=== PATIENT | female | born 1990 | race Two or more races ===

== ENCOUNTER 2018-01-06 19:25 | Emergency (ER) | payer OTHER ==
[2018-01-06] MEDS ORDERED: KETOROLAC TROMETHAMINE INJ/PF 30 MG/1 ML SDV IM ONE (19:53)
[2018-01-06] MEDS ORDERED: DICYCLOMINE HCL 20 MG TABLET PO ONE (19:54)
[2018-01-06] MEDS ORDERED: PROCHLORPERAZINE MALEATE 10 MG TABLET PO ONE (19:55)
--- NOTE | 2018-01-06 19:55 | ER Document Report ---
ED Medical Screen (RME) - General Chief Complaint: Abdominal Pain Stated Complaint: NAUSEA/ABDOMINAL PAIN Time Seen by Provider: 01/06/18 19:52 Notes: 27 years old female presents today with diffuse lower abdominal pain with cramps on and off and also lower back pain. She was recently treated for UTI with nitrofurantoin. She states the pain did not go away even though she was treated with antibiotic. Nauseous no vomiting. Denies any constipation. Denies any dysuria frequency urgency. Denies any fever chills. \ On examination abdomen was tender over the lower left quadrant as well as suprapubic region. TRAVEL OUTSIDE OF THE [place] IN LAST 30 DAYS: No - Related Data Allergies/Adverse Reactions: ondansetron [From Zofran] Allergy (Verified 01/06/18 19:54) Physical Exam - Vital signs Vitals: Temp Pulse Resp BP Pulse Ox 98.7 F 64 16 125/81 97 01/06/18 19:31 01/06/18 19:31 01/06/18 19:31 01/06/18 19:31 01/06/18 19:31 Course - Vital Signs Vital signs: Temp Pulse Resp BP Pulse Ox 98.7 F 64 16 125/81 97 01/06/18 19:31 01/06/18 19:31 01/06/18 19:31 01/06/18 19:31 01/06/18 19:31
[2018-01-06] MEDS ORDERED: KETOROLAC TROMETHAMINE INJ/PF 30 MG/1 ML SDV IV ONE (20:08)
--- NOTE | 2018-01-06 20:30 | RADIOLOGY REPORT (SQ) ---
EXAM DESCRIPTION: KUB/ABDOMEN (SINGLE VIEW) COMPLETED DATE/TIME: 01/06/2018 8:13 pm REASON FOR STUDY: ABDOMINAL PAIN COMPARISON: None. NUMBER OF VIEWS: One view. TECHNIQUE: Supine radiographic image of the abdomen acquired. LIMITATIONS: None. FINDINGS: BOWEL GAS PATTERN: Normal bowel gas pattern. No dilated loops. CALCIFICATIONS: No suspicious calcifications. SOFT TISSUES: No gross mass or suggestion of organomegaly. HARDWARE: None in the abdomen. BONES: No acute fracture. No worrisome bone lesions. OTHER: No other significant finding. IMPRESSION: NO RADIOGRAPHIC EVIDENCE FOR ACUTE ABDOMINAL DISEASE. TECHNICAL DOCUMENTATION: JOB ID: [id number] [employer]- All Rights Reserved Reading location - IP/workstation name: [email or web address]
--- NOTE | 2018-01-06 20:41 | ER Document Report ---
ED General - General Chief Complaint: Abdominal Pain Stated Complaint: NAUSEA/ABDOMINAL PAIN Time Seen by Provider: 01/06/18 19:52 Notes: Patient is a 27-year-old female without chronic medical problems, no prior abdominal surgical history who presents with 3 weeks of lower abdominal pain and left flank pain. The patient describes it as a daily, cramping, aching, diffuse lower abdominal discomfort. Nothing improves or worsens this pain. States that she has had a similar presentation in the past for a urinary tract infection but currently denies any dysuria or urinary frequency. She was seen 1 week ago in [place], diagnosed with a urinary tract infection and started on Macrobid but states that this did not at all improve her symptoms. She has not had any fever, vomiting, diarrhea, vaginal bleeding or vaginal discharge. She is currently sexually active. She denies any prior history of pelvic inflammatory disease. She has not followed up with her primary care doctor. TRAVEL OUTSIDE OF THE [place] IN LAST 30 DAYS: No - Related Data Allergies/Adverse Reactions: ondansetron [From Zofran] Allergy (Verified 01/06/18 19:54) Past Medical History - General Information source: Patient - Social History Smoking Status: Never Smoker Chew tobacco use (# tins/day): No Frequency of alcohol use: None Drug Abuse: None Lives with: Spouse/Significant other Family History: Reviewed & Not Pertinent Patient has suicidal ideation: No Patient has homicidal ideation: No Renal/ Medical History: Denies: Hx Peritoneal Dialysis Review of Systems - Review of Systems Notes: Constitutional: Negative for fever. HENT: Negative for sore throat. Eyes: Negative for visual changes. Cardiovascular: Negative for chest pain. Respiratory: Negative for shortness of breath. Gastrointestinal: Positive for lower abdominal pain and nausea Genitourinary: Negative for dysuria. Musculoskeletal: Negative for back pain. Skin: Negative for rash. Neurological: Negative for headaches, weakness or numbness. 10 point ROS negative except as marked above and in HPI. Physical Exam - Vital signs Vitals: Temp Pulse Resp BP Pulse Ox 98.7 F 64 16 125/81 97 01/06/18 19:31 01/06/18 19:31 01/06/18 19:31 01/06/18 19:31 01/06/18 19:31 Interpretation: Normal Notes: PHYSICAL EXAMINATION: GENERAL: Well-appearing, well-nourished and in no acute distress. HEAD: Atraumatic, normocephalic. EYES: Pupils equal round and reactive to light, extraocular movements intact, sclera anicteric, conjunctiva are normal. ENT: nares patent, oropharynx clear without exudates. Moist mucous membranes. NECK: Normal range of motion, supple without lymphadenopathy LUNGS: Breath sounds clear to auscultation bilaterally and equal. No wheezes rales or rhonchi. HEART: Regular rate and rhythm without murmurs ABDOMEN: Soft, nontender, normoactive bowel sounds. No guarding, no rebound. No masses appreciated. Mild left flank tenderness on palpation : EXTREMITIES: Normal range of motion, no pitting or edema. No cyanosis. NEUROLOGICAL: No focal neurological deficits. Moves all extremities spontaneously and on command. PSYCH: Normal mood, normal affect. SKIN: Warm, Dry, normal turgor, no rashes or lesions noted. Course - Re-evaluation Re-evalutation: 01/06/18 20:43 Presentation of 3 weeks of lower abdominal discomfort as well as left flank tenderness which is also notable on exam. Differential includes cystitis, pyelonephritis, possible pelvic inflammatory disease. Very low clinical suspicion for an acute appendicitis and ovarian torsion, tubo-ovarian abscess based on exam and history. The patient's duration of illness effectively excludes an acute appendicitis, ovarian torsion but does not definitively exclude a pelvic inflammatory disease or developing tubo-ovarian abscess. Will obtain urinalysis, basic blood work, transvaginal ultrasound, perform pelvic exam and reassess 01/06/18 22:49 Transvaginal ultrasound was unable to visualize ovaries although repeat abdominal exam remains quite benign without any focal tenderness to either adnexa. exam shows mild cervical motion tenderness, scant discharge. Transvaginal ultrasound did show fluid in the cervical canal. At this point I am uncertain of the exact etiology of the patient's presentation although pelvic inflammatory disease does seem to be the most probable given the absence of an alternative possible cause given her reassuring evaluation and repeat abdominal exam. Again at this point on abdominal exam she has no focal right lower quadrant tenderness, no focal adnexal tenderness, no upper abdominal pain. Repeat CVA exam without any focal tenderness. Urinalysis is not consistent with nephrolithiasis or pyelonephritis. She is not . She will be treated with a dose of ceftriaxone and outpatient with doxycycline. NSAIDs have been recommended for pain control. At this time will discharge with return precautions and follow-up recommendations. Verbal discharge instructions given a the bedside and opportunity for questions given. Medication warnings reviewed. Patient is in agreement with this plan and has verbalized understanding of return precautions and the need for primary care follow-up in the next 24-72 hours. - Vital Signs Vital signs: Temp Pulse Resp BP Pulse Ox 98.7 F 64 16 125/81 97 01/06/18 19:31 01/06/18 19:31 01/06/18 19:31 01/06/18 19:31 01/06/18 19:31 - Laboratory Result Diagrams: 01/06/18 20:39 01/06/18 21:01 Laboratory results interpreted by me: 01/06/18 01/06/18 01/06/18 20:31 20:39 21:01 Lymphocytes % 47.0 H Carbon Dioxide 21 L Urine Ascorbic Acid 40 H Discharge - Discharge Clinical Impression: Lower abdominal pain, Pelvic inflammatory disease Condition: Good Disposition: HOME, SELF-CARE Additional Instructions: You were seen today for lower abdominal pain. Your exam is quite reassuring although you do have some pain with movement of your cervix and there is fluid in your cervical canal on your transvaginal ultrasound. Your therefore being empirically treated for possible diagnosis of pelvic inflammatory disease as the remainder of your workup does not suggest an alternative cause of your pain. For your pain: Take ibuprofen 600 mg and acetaminophen 1000 mg every 6 hours together as needed for pain. Take your antibiotics as prescribed. Please follow-up with your general doctor or [facility] within the next 1 week. Return if you develop fever of greater than 100.4 F, worsening pain, persistent vomiting, heavy vaginal bleeding or discharge, or any other symptoms that are worrisome to you. Prescriptions: Doxycycline Hyclate 100 mg PO BID #28 capsule
[2018-01-06 20:46] LABS: ABSOLUTE BASOPHILS # (AUTO) 0.1 10^3/uL (0.0-0.2); ABSOLUTE EOSINOPHILS # (AUTO) 0.2 10^3/uL (0.0-0.6); ABSOLUTE LYMPHOCYTES (AUTO) 3.5 10^3/uL (0.5-4.7); ABSOLUTE MONOCYTES (AUTO) 0.5 10^3/uL (0.1-1.4); ABSOLUTE NEUT (AUTO) 3.1 10^3/uL (1.7-8.2); BASOPHILS % (AUTO) 0.9 % (0-2); EOSINOPHILS % (AUTO) 2.3 % (0-6); MEAN CORPUSCULAR HEMOGLOBIN 32.3 pg (27.0-33.4); MEAN CORPUSCULAR HGB CONC 35.8 g/dL (32.0-36.0); MEAN CORPUSCULAR VOLUME 90 fl (80-97); MONOCYTES % (AUTO) 7.2 % (3-13); PLATELET COUNT 303 10^3/uL (150-450); RED BLOOD COUNT 4.65 10^6/uL (3.72-5.28); RED CELL DISTRIBUTION WIDTH 12.9 % (11.5-14.0); SEGMENTED NEUTROPHILS % (AUTO) 42.6 % (42-78); TOTAL CELLS COUNTED % (AUTO) 100 %; WHITE BLOOD COUNT 7.3 10^3/uL (4.0-10.5)
[2018-01-06 20:52] LABS: APPEARANCE,URINE CLEAR; BILIRUBIN,URINE NEGATIVE (NEGATIVE); COLOR,URINE STRAW; GLUCOSE, URINE NEGATIVE (NEGATIVE); KETONES,URINE NEGATIVE (NEGATIVE); LEUKOCYTE ESTERASE,URINE NEGATIVE (NEGATIVE); NITRITE,URINE NEGATIVE (NEGATIVE); PROTEIN,URINE NEGATIVE (NEGATIVE); UROBILINOGEN,URINE NEGATIVE mg/dL (<2.0)
[2018-01-06 21:31] LABS: ALANINE AMINOTRANSFERASE 19 U/L (9-52); ALBUMIN 4.6 g/dL (3.5-5.0); ALKALINE PHOSPHATASE 63 U/L (38-126); ANION GAP 17 (5-19); ASPARTATE AMINO TRANSFERASE 18 U/L (14-36); BILIRUBIN,DIRECT 0.1 mg/dL (0.0-0.4); BILIRUBIN,TOTAL 0.6 mg/dL (0.2-1.3); BLOOD UREA NITROGEN 10 mg/dL (7-20); CALCIUM 9.8 mg/dL (8.4-10.2); CARBON DIOXIDE 21 mmol/L (22-30); CHLORIDE 105 mmol/L (98-107); GLUCOSE 77 mg/dL (75-110); POTASSIUM 3.6 mmol/L (3.6-5.0); SODIUM 142.6 mmol/L (137-145)
--- NOTE | 2018-01-06 22:26 | RADIOLOGY REPORT (SQ) ---
US PELVIS HISTORY: Lower abdominal pain. COMPARISON: None. TECHNIQUE: Grayscale, color Doppler, and spectral Doppler ultrasound images of the pelvis were obtained. FINDINGS: The uterus is anteverted and measures 6.5 x 2.9 x 4.5 cm. The endometrium measures 3 mm in thickness. The cervical canal contains a moderate amount of fluid. Ovaries are not visualized on this study. No free fluid is seen in the pelvis. IMPRESSION: Moderate amount of fluid in the cervical canal. Correlate clinically. Ovaries are not visualized on this study.
[2018-01-06] MEDS ORDERED: DOXYCYCLINE HYCLATE 100 MG TABLET PO ONE (22:49)
[2018-01-06] MEDS ORDERED: CEFTRIAXONE INJ 250 MG VIAL IM ONE (22:49)
[2018-01-06] MEDS ORDERED: LIDOCAINE 1% INJ-PF (10 MG/ML) 30 ML SDV INFIL ONE (22:49)
[2018-01-06 23:04] LABS: T.VAGINALIS (WET MOUNT) NO TRICHOMONAS SEEN; WBCS (WET MOUNT) NO WBCS SEEN; YEAST (WET MOUNT) NO YEAST SEEN
[2018-01-06 23:09] VITALS: BP 111/74
[2018-01-07 00:39] LABS: CHLAM PCR NOT DETECTED (NOT DETECT); GON PCR NOT DETECTED (NOT DETECT)
== END 2018-01-06 23:09 | disposition home or self-care (01) ==
LOC: ER 19:25
DX: R10.30 Lower abdominal pain, unspecified (principal); N73.9 Female pelvic inflammatory disease, unspecified; R11.0 Nausea
CPT/HCPCS: 99284; 96372; 96374; 36415; 87210; 85025; 81025; 80053; 81001; 87491; 87591; 74018; 76830; 93976; J3490 ×2; J1885; S0183; J0696